=== PATIENT | female | born 1945 | race African-American/Black ===

== ENCOUNTER 2019-05-12 16:12 | Inpatient (IN) | payer MEDICARE, MEDICAID ==
[~2019-05-12] VITALS: Ht 152.4 cm; Wt 44.5 kg
[2019-05-12] MEDS ORDERED: SODIUM CHLORIDE 0.9% 500 ML IV ONE ×2 (17:30)
[2019-05-12 18:17] LABS: BASOPHILS % 0.2 % (0.0-2.0); EOSINOPHILS % 1.6 % (0.0-5.0); HEMATOCRIT. 26.1 % (36.0-48.0); HEMOGLOBIN. 8.2 g/dL (12.0-16.0); LYMPHOCYTES % 15.3 % (20.0-50.0); MEAN CORPUSCULAR HEMOGLOBIN 24.2 pg (28.0-32.0); MEAN CORPUSCULAR VOLUME 77.2 fL (81.0-99.0); MEAN PLATELET VOLUME 7.7 fl (7.4-10.4); MONOCYTES % 5.8 % (2.0-8.0); NEUTROPHILS % 77.1 % (40.0-76.0); PLATELET 404 x1000/uL (130-400); RED BLOOD CELL COUNT 3.38 mill/uL (4.2-5.4); RED CELL DISTRIBUTION WIDTH 18.7 % (11.6-14.6)
[2019-05-12 18:22] LABS: INR 1.1; PROTHROMBIN TIME 11.6 sec (9.6-11.0)
[2019-05-12 18:26] LABS: CHLORIDE 110 mEq/L (98-107)
[2019-05-12] MEDS ORDERED: SODIUM CHLORIDE 0.9% 1,000 ML IV ONE (18:35)
[2019-05-12] MEDS ORDERED: CEFTRIAXONE 1 G PREMIX 50 ML IV ONE (18:45)
[2019-05-12 19:17] LABS: CLARITY URINE CLOUDY (CLEAR); COLOR URINE ORANGE (YELLOW); KETONES URINE NEGATIVE (NEGATIVE); LEUKOCYTE ESTERASE URINE 3+ (NEGATIVE); NITRITE URINE NEGATIVE (NEGATIVE); OCCULT BLOOD URINE 3+ (NEGATIVE); PH URINE 6.5 (4.5-8.0); PROTEIN URINE 4+ (NEGATIVE); SPECIFIC GRAVITY URINE 1.022 (1.005-1.030)
[2019-05-12 21:00] VITALS: BP 92/57
[2019-05-12] MEDS ORDERED: ONDANSETRON HCL 4MG/2ML INJ IV PRN (22:45)
[2019-05-12] MEDS ORDERED: MAGNESIUM/ALUMINUM HYDROXIDE/SIMETHICONE 30ML UDC PO PRN (22:45)
[2019-05-12] MEDS ORDERED: CLONIDINE 0.1MG TABLET PO PRN (22:45)
[2019-05-12] MEDS ORDERED: DIPHENHYDRAMINE 50MG/ML VIAL IV PRN (22:45)
[2019-05-13] VITALS (9 sets, daily range): BP systolic 92–108; BP diastolic 55–76
[2019-05-13] MEDS: SODIUM CHLORIDE 0.9% 1,000 ML IV SCH ×2 (00:31→20:03)
[2019-05-13 07:39] LABS: BASOPHILS % 0.5 % (0.0-2.0); EOSINOPHILS % 2.7 % (0.0-5.0); HEMATOCRIT. 22.1 % (36.0-48.0); LYMPHOCYTES % 24.1 % (20.0-50.0); MEAN CORPUSCULAR HEMOGLOBIN 24.5 pg (28.0-32.0); MEAN CORPUSCULAR VOLUME 77.3 fL (81.0-99.0); MEAN PLATELET VOLUME 7.9 fl (7.4-10.4); MONOCYTES % 5.9 % (2.0-8.0); NEUTROPHILS % 66.8 % (40.0-76.0); PLATELET 345 x1000/uL (130-400); RED BLOOD CELL COUNT 2.86 mill/uL (4.2-5.4); RED CELL DISTRIBUTION WIDTH 18.8 % (11.6-14.6)
[2019-05-13 09:10] LABS: PHOSPHORUS 3.5 mg/dL (2.5-4.9)
[2019-05-13] MEDS ORDERED: MAGNESIUM 4 G PREMIX 100 ML IV NR (13:00)
[2019-05-13] MEDS ORDERED: FERR325T6 MT (13:20)
[2019-05-13] MEDS ORDERED: AMIT25TA9 MT (13:20)
[2019-05-13] MEDS ORDERED: DULO60CA64 MT (13:20)
[2019-05-13] MEDS ORDERED: METO25TA6 MT (13:20)
[2019-05-13] MEDS ORDERED: DIME240C2 MT (13:20)
[2019-05-13] MEDS ORDERED: PANT40TA4 MT (13:20)
[2019-05-13] MEDS ORDERED: ATOR10TA69 MT (13:20)
[2019-05-13] MEDS ORDERED: ALLO100T MT (13:20)
[2019-05-13] MEDS ORDERED: NAPR375T5 MT (13:20)
[2019-05-13] MEDS ORDERED: ESCI10TA61 MT (13:20)
[2019-05-13] MEDS ORDERED: GABA-531 MT (13:20)
[2019-05-13] MEDS ORDERED: MULT-1146 MT (13:20)
[2019-05-13 15:50] LABS: BASOPHILS % 0.6 % (0.0-2.0); EOSINOPHILS % 3.6 % (0.0-5.0); HEMATOCRIT. 25.3 % (36.0-48.0); HEMOGLOBIN. 8.2 g/dL (12.0-16.0); LYMPHOCYTES % 25.7 % (20.0-50.0); MEAN CORPUSCULAR HEMOGLOBIN 26.1 pg (28.0-32.0); MEAN CORPUSCULAR VOLUME 80.6 fL (81.0-99.0); MEAN PLATELET VOLUME 7.8 fl (7.4-10.4); MONOCYTES % 5.3 % (2.0-8.0); NEUTROPHILS % 64.8 % (40.0-76.0); PLATELET 320 x1000/uL (130-400); RED BLOOD CELL COUNT 3.14 mill/uL (4.2-5.4); RED CELL DISTRIBUTION WIDTH 19.8 % (11.6-14.6)
[2019-05-13 17:31] LABS: TOTAL IRON BINDING CAPACITY 239 ug/dL (250-450)
[2019-05-13] MEDS: IRON SUCROSE COMPLEX 100 MG/5 ML ML IV SCH (18:21)
[2019-05-13] MEDS: CEFTRIAXONE 1 G PREMIX 50 ML IV SCH (20:03)
[2019-05-13 20:27] LABS: BASOPHILS % 0.6 % (0.0-2.0); EOSINOPHILS % 4.4 % (0.0-5.0); HEMATOCRIT. 24.8 % (36.0-48.0); HEMOGLOBIN. 8.2 g/dL (12.0-16.0); LYMPHOCYTES % 28.6 % (20.0-50.0); MEAN CORPUSCULAR HEMOGLOBIN 26.9 pg (28.0-32.0); MEAN CORPUSCULAR VOLUME 80.8 fL (81.0-99.0); MEAN PLATELET VOLUME 7.5 fl (7.4-10.4); MONOCYTES % 5.1 % (2.0-8.0); NEUTROPHILS % 61.3 % (40.0-76.0); PLATELET 183 x1000/uL (130-400); RED BLOOD CELL COUNT 3.06 mill/uL (4.2-5.4)
[2019-05-14] VITALS (7 sets, daily range): BP systolic 103–143; BP diastolic 67–87
[2019-05-14 05:34] LABS: BASOPHILS % 0.6 % (0.0-2.0); EOSINOPHILS % 3.5 % (0.0-5.0); HEMATOCRIT. 30.2 % (36.0-48.0); HEMOGLOBIN. 10.1 g/dL (12.0-16.0); LYMPHOCYTES % 25.3 % (20.0-50.0); MEAN CORPUSCULAR HEMOGLOBIN 26.5 pg (28.0-32.0); MEAN PLATELET VOLUME 7.6 fl (7.4-10.4); MONOCYTES % 7.2 % (2.0-8.0); NEUTROPHILS % 63.4 % (40.0-76.0); PLATELET 330 x1000/uL (130-400); RED BLOOD CELL COUNT 3.82 mill/uL (4.2-5.4); RED CELL DISTRIBUTION WIDTH 18.9 % (11.6-14.6)
[2019-05-14 05:55] LABS: CHLORIDE 114 mEq/L (98-107)
[2019-05-14 06:00] LABS: PHOSPHORUS 3.5 mg/dL (2.5-4.9)
[2019-05-14] MEDS: SODIUM CHLORIDE 0.9% 1,000 ML IV SCH ×2 (09:23→20:57)
[2019-05-14] MEDS ORDERED: METOPROLOL TARTRATE 25MG TABLET PO NR (13:23)
[2019-05-14] MEDS ORDERED: IOHEXOL-300 100 ML BOTTLE ONE (13:39)
[2019-05-14] MEDS: IRON SUCROSE COMPLEX 100 MG/5 ML ML IV SCH (16:29)
[2019-05-14] MEDS: CEFTRIAXONE 1 G PREMIX 50 ML IV SCH (20:03)
[2019-05-14] MEDS: METOPROLOL TARTRATE 25MG TABLET PO SCH (20:51)
[2019-05-15] VITALS: BP 129/82
[2019-05-15 04:00] VITALS: BP 123/84
[2019-05-15] MEDS: SODIUM CHLORIDE 0.9% 1,000 ML IV SCH (08:58)
[2019-05-15] MEDS: METOPROLOL TARTRATE 25MG TABLET PO SCH ×2 (08:59→20:30)
[2019-05-15] MEDS: CEFTRIAXONE 1 G PREMIX 50 ML IV SCH (19:45)
[2019-05-15 20:00] VITALS: BP 133/69
[2019-05-15] MEDS: IRON SUCROSE COMPLEX 100 MG/5 ML ML IV SCH (20:31)
[2019-05-15] MEDS: METRONIDAZOLE 500MG TABLET PO SCH (21:17)
[2019-05-16] VITALS: BP 137/83
[2019-05-16 04:00] VITALS: BP 145/89
[2019-05-16] MEDS: METRONIDAZOLE 500MG TABLET PO SCH ×3 (05:11→21:00)
[2019-05-16 08:00] VITALS: BP 146/78
[2019-05-16] MEDS: SODIUM CHLORIDE 0.9% 1,000 ML IV SCH ×2 (08:00→18:00)
[2019-05-16] MEDS: ACETAMINOPHEN 325MG TABLET PO PRN (09:08)
[2019-05-16] MEDS: METOPROLOL TARTRATE 25MG TABLET PO SCH ×2 (09:08→21:00)
[2019-05-16] MEDS ORDERED: FENTANYL CITRATE/PF 50MCG/ML 2ML VIAL ONE (11:34)
[2019-05-16] MEDS ORDERED: MIDAZOLAM HCL 2 MG/2 ML VIAL ONE (11:35)
[2019-05-16] MEDS ORDERED: ROCURONIUM BROMIDE 10MG/ML VIAL 5ML IV ONE (11:46)
[2019-05-16] MEDS ORDERED: ONDANSETRON HCL 4MG/2ML INJ ONE (12:37)
[2019-05-16] MEDS ORDERED: DEXAMETHASONE 4MG/ML 1ML VIAL ONE (12:37)
[2019-05-16] MEDS ORDERED: ESMOLOL HCL 10MG/ML 10ML VIAL IV ONE (13:02)
[2019-05-16] MEDS ORDERED: HYDROMORPHONE HCL/PF 2MG/ML CPJ IV PRN (13:30)
[2019-05-16 16:00] VITALS: BP 153/98
[2019-05-16] MEDS: CEFTRIAXONE 1 G PREMIX 50 ML IV SCH (19:58)
[2019-05-16 20:00] VITALS: BP 124/86
[2019-05-17] VITALS: BP 124/80
[2019-05-17 04:00] VITALS: BP 128/75
[2019-05-17] MEDS: METRONIDAZOLE 500MG TABLET PO SCH ×2 (05:18→14:27)
[2019-05-17 08:00] VITALS: BP 114/68
[2019-05-17] MEDS: ACETAMINOPHEN 325MG TABLET PO PRN (09:13)
[2019-05-17] MEDS: METOPROLOL TARTRATE 25MG TABLET PO SCH (09:20)
[2019-05-17 12:00] VITALS: BP 119/68
[2019-05-17] MEDS: DULOXETINE HCL 60MG DR CAPSULE PO SCH (12:57)
[2019-05-17] MEDS: SODIUM CHLORIDE 0.9% 1,000 ML IV SCH (12:57)
[2019-05-17 16:00] VITALS: BP 127/69
[2019-05-17] MEDS: IRON SUCROSE COMPLEX 100 MG/5 ML ML IV SCH (17:39)
[2019-05-17 20:00] VITALS: BP 115/65
[2019-05-18] VITALS: BP 109/64
[2019-05-18] MEDS: SODIUM CHLORIDE 0.9% 1,000 ML IV SCH ×2 (01:40→19:58)
[2019-05-18] MEDS: AMITRIPTYLINE 25MG TABLET PO SCH ×2 (01:43→20:06)
[2019-05-18] MEDS: METOPROLOL TARTRATE 25MG TABLET PO SCH ×3 (01:44→20:06)
[2019-05-18] MEDS: METRONIDAZOLE 500MG TABLET PO SCH ×4 (01:45→21:53)
[2019-05-18] MEDS: CEFTRIAXONE 1 G PREMIX 50 ML IV SCH ×2 (01:46→19:58)
[2019-05-18 04:00] VITALS: BP 118/68
[2019-05-18 06:59] LABS: BASOPHILS % 0.7 % (0.0-2.0); EOSINOPHILS % 1.1 % (0.0-5.0); HEMATOCRIT. 36.2 % (36.0-48.0); HEMOGLOBIN. 11.6 g/dL (12.0-16.0); LYMPHOCYTES % 19.3 % (20.0-50.0); MEAN CORPUSCULAR HEMOGLOBIN 26.2 pg (28.0-32.0); MEAN CORPUSCULAR VOLUME 81.9 fL (81.0-99.0); MEAN PLATELET VOLUME 8.1 fl (7.4-10.4); MONOCYTES % 7.2 % (2.0-8.0); NEUTROPHILS % 71.7 % (40.0-76.0); PLATELET 358 x1000/uL (130-400); RED BLOOD CELL COUNT 4.43 mill/uL (4.2-5.4); RED CELL DISTRIBUTION WIDTH 20.2 % (11.6-14.6)
[2019-05-18 08:13] LABS: CHLORIDE 108 mEq/L (98-107)
[2019-05-18] MEDS: IRON SUCROSE COMPLEX 100 MG/5 ML ML IV SCH (10:05)
[2019-05-18] MEDS: DULOXETINE HCL 60MG DR CAPSULE PO SCH (10:09)
[2019-05-18] MEDS: ACETAMINOPHEN 325MG TABLET PO PRN (10:34)
[2019-05-18] MEDS ORDERED: MAGNESIUM 2 G PREMIX 50 ML IV SCH (11:00)
[2019-05-18 12:00] VITALS: BP 96/60
[2019-05-18] MEDS: HYDROCODONE/ACETAMINOPHEN 5/325MG TABLET PO PRN ×2 (15:54→20:15)
[2019-05-18 16:00] VITALS: BP 121/75
[2019-05-18 20:00] VITALS: BP 99/61
[2019-05-18] MEDS: TECFIDERA 240 MG PO SCH ×2 (20:07→20:10)
[2019-05-19] VITALS: BP 81/47
[2019-05-19 04:00] VITALS: BP 96/58
[2019-05-19] MEDS: METRONIDAZOLE 500MG TABLET PO SCH ×2 (05:36→14:03)
[2019-05-19 08:00] VITALS: BP 117/70
[2019-05-19] MEDS: METOPROLOL TARTRATE 25MG TABLET PO SCH (09:39)
[2019-05-19] MEDS: TECFIDERA 240 MG PO SCH (09:39)
[2019-05-19] MEDS: DULOXETINE HCL 60MG DR CAPSULE PO SCH (09:39)
[2019-05-19] MEDS: IRON SUCROSE COMPLEX 100 MG/5 ML ML IV SCH (09:40)
[2019-05-19] MEDS: HYDROCODONE/ACETAMINOPHEN 5/325MG TABLET PO PRN (09:42)
[2019-05-19 12:00] VITALS: BP 112/72
[2019-05-19 16:00] VITALS: BP 94/54
[2019-05-19 18:31] VITALS: BP 94/54
== END 2019-05-19 19:44 | DRG 668 ==
LOC: ER 16:12 → 6EST 18:41 → ENRESERV 19:28
PROVIDERS: ADMIT Internal Medicine; ATTEND Internal Medicine
PROC: 30233N1 Transfusion of Nonautologous Red Blood Cells into Peripheral Vein, Percutaneous Approach (ICD-10-PCS; 2019-05-13)
PROC: 0TBB8ZZ Excision of Bladder, Via Natural or Artificial Opening Endoscopic (ICD-10-PCS; principal; 2019-05-16)
DX: N32.9 Bladder disorder, unspecified (principal); R65.11 Systemic inflammatory response syndrome (SIRS) of non-infectious origin with acute organ dysfunction; N17.0 Acute kidney failure with tubular necrosis; A04.72 Enterocolitis due to Clostridium difficile, not specified as recurrent; N39.0 Urinary tract infection, site not specified; N17.9 Acute kidney failure, unspecified; R31.9 Hematuria, unspecified; E83.42 Hypomagnesemia; Z85.3 Personal history of malignant neoplasm of breast; G35 Multiple sclerosis; N18.9 Chronic kidney disease, unspecified; I25.10 Atherosclerotic heart disease of native coronary artery without angina pectoris; D50.9 Iron deficiency anemia, unspecified; F32.9 Major depressive disorder, single episode, unspecified; Z87.891 Personal history of nicotine dependence
CPT/HCPCS: 36415; 71045; 74178; 76856; 80048; 80053; 81003; 83540; 83550; 83735; 84100; 85025; 86850; 86900; 86920; 87077; 87186; 87493; 88305; 93005; 93970; 97161; 97166; 97530; 99285; C1893; J0696; J1100; J2250; J2405; J3010; J3475; J3490; J7030; J7040; P9016; Q9967; A4315